=== PATIENT | male | born 1980 | race Caucasian/White ===

== ENCOUNTER 2017-09-17 05:29 | Emergency (ER) | payer MEDICAID ==
[~2017-09-17] VITALS: Ht 172.7 cm; Wt 83.9 kg
[2017-09-17] MEDS ORDERED: NORCO 10-325 T1 EACH PO (06:17)
== END 2017-09-17 06:42 | disposition home or self-care (01) ==
LOC: ED 05:29
DX: S62.325A Displaced fracture of shaft of fourth metacarpal bone, left hand, initial encounter for closed fracture (principal); S62.327A Displaced fracture of shaft of fifth metacarpal bone, left hand, initial encounter for closed fracture; W10.9XXA Fall (on) (from) unspecified stairs and steps, initial encounter; Z91.030 Bee allergy status
CPT/HCPCS: 73130; 99283

== ENCOUNTER 2017-09-23 07:05 | Day surgery (SDC) | payer OTHER ==
[~2017-09-23] VITALS: Ht 172.7 cm; Wt 81.7 kg
[~2017-09-23 07:05] MED LIST: NORCO 10-325 T1 EACH PO
--- NOTE | 2017-09-23 11:52 | NUR ---
09/23/17 1152 Lula Guillen 1128 PT ARRIVED IN PACU WITH ORAL AIRWAY IN PLACE. RN DOING JAW THRUST. OXYGEN DECREASED TO 6L VIA MASK WITH SATS 100%. 1135 REMOVED PT'S PILLOW AND ABLE TO STOP DOING JAW THRUST. ORAL AIRWAY IN PLACE AND PT EXCHANGING AIR WITH SATS 100% ON 6L.
--- NOTE | 2017-09-23 12:34 | NUR ---
PT ARRIVES TO DS TREATMENT ROOM FROM RECOVERY AWAKE, BUT DROWSY. PT EASILY AROUSED WITH VOICE COMMANDS. PT COMPLAINS OF "REALLY BAD PAIN" IN HIS LEFT HAND AND RATES PAIN 8/10 ON ARRIVAL. PT MAINTAINS O2 SATS 100 PERCENT ON RA ON ARRIVAL, RR EVEN AND UNLABORED. IN ROOM AT BEDSIDE. PT PROVIDED CRACKERS, ICED WATER AND PUDDING. PT ENCOURAGED TO EAT CRACKERS AND SOME PUDDING BEFORE ADMINISTRATION OR ORAL PAIN MEDICATION. PT IS COMPLIANT AND EATS CRACKERS AND PUDDING WITH NO COMPLAINTS ON NAUSEA. NORCO PAIN MEDICATION IS GIVEN TO PT. SCD'S IN PLACE, CALL LIGHT AT PT LEFT SIDE.
[2017-09-23] MEDS ORDERED: NORCO 10-325 T1 EACH PO (12:55)
--- NOTE | 2017-09-23 13:33 | NUR ---
PATIENT UP TO BATHROOM TO VOID. PATIENT AMBULATED STEADILY BY SELF.
--- NOTE | 2017-09-23 13:52 | NUR ---
PATIENT IS FALLING ASLEEP WHEN LEFT UNSTIMULATED. WHEN ASKED TO RATE PAIN, PATIENT REPORTS IT IS A 9/10. WHEN THE PAIN SCALE IS CLARIFIED, PATIENT REPORTS PAIN IS 8/10. PATIENT DOES NOT HAVE ANY NON-VERBAL SIGNS OF PAIN. PATIENT CONTINUES TO BE DROWSY THROUGHOUT DISCHARGE EDUCATION IN PRESENCE OF HIS SIGNIFICANT OTHER.
--- NOTE | 2017-09-23 14:18 | NUR ---
LE 1405: PATIENT DRESSES SELF IN THE PRESENCE OF HIS SPOUSE AND TRANSFERS HIMSELF TO AND PERSONAL VEHICLE AND DOES THAT WELL.
--- NOTE | 2017-09-24 11:11 | OR ---
[facility] [address], [place] [address] Signed DATE OF OPERATION: 09/23/2017 SURGEON: Kavin Dietz MD PREOPERATIVE DIAGNOSIS: Displaced fractures left 4th and 5th metacarpal mid shaft. POSTOPERATIVE DIAGNOSIS: Displaced fractures left 4th and 5th metacarpal mid shaft. PROCEDURE: Open reduction and internal fixation. ANESTHESIA: General. SPECIMENS AND COMPLICATIONS: There were no specimens or complications. TOURNIQUET TIME: About 46 minutes. IMPLANTS: Two 1.5 mm 6-hole plates with six screws each. WHAT WAS DONE: The patient was taken to the operating room. After anesthesia was induced and airway secured, the patient was positioned, prepped and draped in a routine sterile fashion. The arm was exsanguinated with an Esmarch bandage. Pneumatic tourniquet about the upper arm was inflated to 250 mmHg pressure. A dorsal incision was made in the 4th web space spanning the fracture site. His skin was divided sharply. Subcutaneous tissue was bluntly spread. The extensor tendons were retracted in a radial direction and the fracture of the 4th metacarpal identified. We were able to clean the ends of the fracture with a tiny curette and then reduced that using a dental pick tool. Once we were happy with alignment and position, it was secured using a 6-hole 1.5 mm plate. AP, lateral, and oblique fluoroscopy confirmed good reduction, good alignment, good position, and clinical examination indicated. We had good angular and good rotational alignment. The wound was gently irrigated. We then dissected in the subcutaneous layer over to the dorsal aspect of the 5th metacarpal. Again, the fracture site was identified. This wound was significantly more comminuted and several small comminuted Electronically Signed By: KAVIN DIETZ MD 09/24/17 1111 PATIENT NAME: DILLON MCPHERSON OPERATIVE REPORT DATE OF : 80 REPORT #: [id number] PHYSICIAN: KAVIN DIETZ MD PCP: NO PRIMARY CARE PHYSICIAN REPORT IS CONFIDENTIAL AND NOT TO BE RELEASED WITHOUT AUTHORIZATION [facility] [address], [place] [address] Signed fragments were loose and were removed. We therefore gently debrided the fracture site again with a small curette, reduced with a dental pick tool and again secured it with a 6-hole 1.5 mm plate. Again, AP and lateral fluoroscopy showed good alignment, good position, and stable construct. A clinical examination indicated that the rotational alignment of the fingers was correct. The wound was gently irrigated and closed in standard fashion. A sterile dressing applied. The patient placed in a volar splint, awakened, and taken to the recovery room where he arrived in stable condition. Counts were correct and antibiotic protocols were followed. Kavin Dietz MD WFB/MODL /[id number] Copies: ~ Electronically Signed By: KAVIN DIETZ MD 09/24/17 1111 PATIENT NAME: DILLON MCPHERSON OPERATIVE REPORT DATE OF : 80 REPORT #: [id number] PHYSICIAN: KAVIN DIETZ MD PCP: NO PRIMARY CARE PHYSICIAN REPORT IS CONFIDENTIAL AND NOT TO BE RELEASED WITHOUT AUTHORIZATION
== END 2017-09-23 14:05 | disposition home or self-care (01) ==
LOC: DS 07:05 → OPS 07:05 → DS 08:45 → OPS 14:05
PROVIDERS: Orthopaedic Surgery
PROC: 0PSQ04Z Reposition Left Metacarpal with Internal Fixation Device, Open Approach (ICD-10-PCS; 2017-09-23)
PROC: 0PSQ04Z Reposition Left Metacarpal with Internal Fixation Device, Open Approach (ICD-10-PCS; principal; 2017-09-23 08:45)
DX: S62.325A Displaced fracture of shaft of fourth metacarpal bone, left hand, initial encounter for closed fracture (principal); S62.327A Displaced fracture of shaft of fifth metacarpal bone, left hand, initial encounter for closed fracture; M54.5 Low back pain; G89.29 Other chronic pain
CPT/HCPCS: 01830; 64415; 73120; 76942; C1713; J0330; J0690; J1100; J1885; J2250; J2405; J2704; J2765; J3010; J7120